=== PATIENT | male | born 1960 | race Caucasian/White ===

== ENCOUNTER 2018-03-03 14:40 | Emergency (ER) | payer MEDICARE ==
[~2018-03-03] VITALS: Ht 167.6 cm; Wt 81.6 kg
[2018-03-03] MEDS ORDERED: KEPPRA1000 MG ORAL (15:03)
[2018-03-03] MEDS ORDERED: VIMPAT200 MG PO (15:03)
--- NOTE | 2018-03-03 15:38 | Emergency Room Report ---
History of Present Illness General Chief Complaint: Pain Source: Patient Present Illness HPI 57 yo male patient presents to ER for followup of pain in neck and shoulder. Reports seen by [facility] in [place] on 02/14 for fall on head and neck. Reports repeat visit for removal of sutures in head. Reports had CT of neck and head a, negative results. Reports was told needed followup and possible MRI at followup appointment. Reports just moved to [place] and does not have primary care provider in here. Denies new or worsening of symptoms. Reports not taking pain medication. Denies fever, chest pain, SOB. Allergies: Coded Allergies: CLONAZEPAM (Verified Allergy, Unknown, 03/03/18) LORATADINE (Verified Allergy, Unknown, 03/03/18) Patient History Past Medical History: see triage record Reviewed Nursing Documentation: PMH: Agreed; PSxH: Agreed Nursing Documentation-PMH Hx Seizures: Yes - Left temporal lobe surgery Review of Systems All Other Systems: negative except mentioned in HPI Physical Exam Vital Signs Date Time Temp Pulse Resp B/P (MAP) Pulse Ox O2 Delivery O2 Flow Rate FiO2 03/03/18 14:57 98.3 77 15 152/101 96 Room Air 98.2 Sp02 EP Interpretation: reviewed, normal General Appearance: well appearing, no apparent distress, alert, GCS 15, non- toxic Head: normocephalic, atraumatic Eyes: bilateral eye normal inspection, bilateral eye PERRL ENT: hearing grossly normal, normal pharynx, no angioedema, normal voice, uvula midline, moist mucus membranes Neck: full range of motion, no bony tend Respiratory: lungs clear, normal breath sounds, no rhonchi, no respiratory distress, no accessory muscle use, no wheezing, speaking full sentences Cardiovascular #1: regular rate, rhythm, no edema Cardiovascular #2: 2+ radial (R), 2+ radial (L) Musculoskeletal: back normal, digits/nails normal, gait/station normal, normal range of motion, non-tender Neurologic: alert, oriented x3, responsive, motor strength/tone normal, sensory intact Psychiatric: mood/affect normal Skin: laceration - right forehead: scab, healing, no bleeding, no signs of infection Medical Decision Making PA Attestation Dr. Alcantara is my supervising Physician whom patient management has been discussed with. Diagnostic Impression: Primary Impression: Neck pain Additional Impression: Shoulder pain ER Course Pt. presents to the ED c/o neck and shoulder pain. Ddx considered but are not limited to sprain, strain, contusion. Vital signs: are WNL, pt. is afebrile Does not require imaging or pain medication at this time. ER COURSE PE benign, no bony tenderness, no stepoff, active ROM. Informed patient MRI should be performed at outpatient setting. Needs to call insurance and establish primary care provider. Primary care provider can order MRI and refer to ortho, pain management and/or neuro specialist. ER should be for followup of new or worsening of symptoms. ER cannot manage chronic ailments and pain. Informed patient to take NSAIDs for pain symptoms. Reports still has medication prescribed at previous hospital visits. Provided exercises for shoulder. ER precautions given. DISCHARGE: -Rx not required at this time. At this time pt. is stable for d/c to home. Patient is resting comfortably, in no acute distress, nontoxic appearing, talking without difficulty. Will provide printed patient care instructions, and any necessary prescriptions. Patient instructed to follow with primary care provider in 3 - 5 days and to request further follow-up and imaging. Care plan and follow up instructions have been discussed with the patient prior to discharge. Patient instructed on RICE method: rest, ice, compression, elevation. Patient instructed to NWB. Take medications as directed. Patient questions asked and answered. Patient reports understanding and agreement to treatment plan. ER precautions given, patient instructed to return to ER immediately for any new or worsening of symptoms. Last Vital Signs Date Time Temp Pulse Resp B/P (MAP) Pulse Ox O2 Delivery O2 Flow Rate FiO2 03/03/18 14:57 98.3 77 15 152/101 96 Room Air 98.2 Disposition: HOME, SELF-CARE Condition: Stable Patient Instructions: Cervical Strain and Sprain With Rehab-SportsMed, Shoulder Pain, [id number] Additional Instructions: Followup with primary care provider in 3 -5 days. Contact insurance to receive name of primary care provider that can followup with for treatment and referral to neurology. Discuss MRI at that time. Primary care provider can contact previous primary care provider for previous records of care. Take pain medication for pain symptoms. Contact [facility] for copy of results from scans done at their facility, may require going to facility and medical records office. Take medications as directed. Patient questions asked and answered. ER precautions given, patient instructed to return to ER immediately for any new or worsening of symptoms. Reed Crystal Mar 03, 2018 15:38
[2018-03-03 15:47] VITALS: BP 150/100
== END 2018-03-03 16:00 | disposition home or self-care (01) ==
LOC: EMR 15:51
DX: M54.2 Cervicalgia (principal); M25.519 Pain in unspecified shoulder; S01.81XA Laceration without foreign body of other part of head, initial encounter; W19.XXXA Unspecified fall, initial encounter; Y92.9 Unspecified place or not applicable; Z88.8 Allergy status to other drugs, medicaments and biological substances
CPT/HCPCS: 99282